=== PATIENT | male | born 2000 | race African-American/Black ===

== ENCOUNTER 2021-01-03 00:55 | Emergency (ER) | payer OTHER ==
[2021-01-03 01:18] VITALS: BP 118/74; PULSE 78; RESP 18; TEMP 98.5
[2021-01-03] MEDS ORDERED: PENICILLIN G BENZATHINE 1,200,000 UNIT/2 ML SYRINGE IM ONE (01:30)
--- NOTE | 2021-01-03 01:55 | ED ---
Male Urogenital HPI - General Chief complaint: Urogenital Stated complaint: Urogenital Time Seen by Provider: 01/03/21 01:20 Source: patient, RN notes reviewed Mode of arrival: ambulatory - History of Present Illness Initial comments: Patient is a 20-year-old male that presents to the emergency department complaining of a syphilis infection. He notes he was tested 2 days ago after having a risky sexual encounter on vacation down in [place] over the past week. He notes that he is not from around this area but his primary care called him and told him to come emergency room to get a penicillin injection. Patient denied any other issues or complaints at this time. He is otherwise a well- appearing 20-year-old male in no apparent distress or pain. He denied any chest pain short of breath headache nausea vomiting diarrhea constipation fever fatigue chills. - Related Data Allergies Allergy/AdvReac Type Severity Reaction Status Date / Time No Known Allergies Allergy Verified 01/03/21 01:18 Review of Systems ROS Statement: Those systems with pertinent positive or pertinent negative responses have been documented in the HPI. ROS Other: All systems not noted in ROS Statement are negative. Past Medical History Past Medical History: No Reported History History of Any Multi-Drug Resistant Organisms: None Reported Past Surgical History: No Surgical Hx Reported Past Psychological History: No Psychological Hx Reported Smoking Status: Current every day smoker Past Alcohol Use History: None Reported Past Drug Use History: Marijuana General Exam General appearance: alert, in no apparent distress Head exam: Present: atraumatic, normocephalic, normal inspection Eye exam: Present: normal appearance, PERRL, EOMI. Absent: scleral icterus, conjunctival injection, periorbital swelling Neck exam: Present: normal inspection Respiratory exam: Present: normal lung sounds bilaterally. Absent: respiratory distress, wheezes, rales, rhonchi, stridor Cardiovascular Exam: Present: regular rate, normal rhythm, normal heart sounds. Absent: systolic murmur, diastolic murmur, rubs, gallop, clicks GI/Abdominal exam: Present: soft, normal bowel sounds. Absent: distended, tenderness, guarding, rebound, rigid Extremities exam: Present: normal inspection, full ROM, normal capillary refill. Absent: tenderness, pedal edema, joint swelling, calf tenderness Neurological exam: Present: alert, oriented X3 Psychiatric exam: Present: normal affect, normal mood Skin exam: Present: warm, dry, intact, normal color. Absent: rash Course Vital Signs 01/03/21 01:15 Temperature 98.5 F Pulse Rate 78 Respiratory 18 Rate Blood Pressure 118/74 O2 Sat by Pulse 98 Oximetry Medical Decision Making - Medical Decision Making 20-year-old male sent by primary care to get NG injection for syphilis. 2.4 million units of Penicillin G benzathine. Patient follow-up with primary care. Case discussed with Dr. Patel, patient can discharge home. Disposition Clinical Impression: Syphilis Disposition: HOME SELF-CARE Condition: Stable Instructions (If sedation given, give patient instructions): Syphilis (ED) Additional Instructions: Please return to the Emergency Department if symptoms worsen or any other concerns. Follow-up with primary care in 1-2 days. Avoid sexual contact for the next several weeks. Is patient prescribed a controlled substance at d/c from ED?: No Referrals: Nonstaff,Physician [Primary Care Provider] - 1-2 days Time of Disposition: 01:55
== END 2021-01-03 02:10 | disposition home or self-care (01) ==
LOC: EC 00:55
DX: A53.9 Syphilis, unspecified (principal); F17.200 Nicotine dependence, unspecified, uncomplicated; F12.90 Cannabis use, unspecified, uncomplicated
CPT/HCPCS: 96372; 99283; J0561